=== PATIENT | female | born 1985 | race Caucasian/White ===

== ENCOUNTER 2023-01-30 11:02 | Emergency (ER) | payer BC ==
[~2023-01-30] VITALS: Ht 157.5 cm; Wt 83.5 kg
[2023-01-30 11:53] VITALS: BP 107/67; TEMP 98; O2SAT 98
[2023-01-30] MEDS ORDERED: HYDROCODONE/APAP 5/325MG TABLET PO ONE (12:30)
[2023-01-30] MEDS ORDERED: HYDROCODONE/APAP 5/325MG TABLET ONE (12:46)
[2023-01-30] MEDS ORDERED: OXYC-128 PO (13:01)
== END 2023-01-30 13:17 | disposition home or self-care (01) ==
LOC: ER 11:04
DX: S50.02XA Contusion of left elbow, initial encounter (principal); W10.9XXA Fall (on) (from) unspecified stairs and steps, initial encounter; Y93.89 Activity, other specified; Y92.89 Other specified places as the place of occurrence of the external cause; Y99.8 Other external cause status
CPT/HCPCS: 73080-TC

== ENCOUNTER 2023-03-16 13:35 | Emergency (ER) | payer BC ==
[~2023-03-16] VITALS: Ht 157.5 cm; Wt 81.6 kg
[~2023-03-16 13:35] MED LIST: OXYC-128 PO
[2023-03-16] MEDS: HYDROCODONE/APAP 5/325MG TABLET PO ONE (15:30)
[2023-03-16 15:33] LABS: BASOPHILS # (AUTO) 0.1 K/uL (0.0-0.2); BASOPHILS % (AUTO) 0.9 % (0.0-2.0); EOSINOPHILS # (AUTO) 0.2 K/uL (0.0-0.7); EOSINOPHILS % (AUTO) 2.4 % (0.0-6.0); HEMATOCRIT 37 % (33-45); HEMOGLOBIN 12.2 g/dL (11.5-14.8); LYMPHOCYTES # (AUTO) 1.5 K/uL (0.8-4.8); LYMPHOCYTES % (AUTO) 22.2 % (20.0-44.0); MEAN CORPUSCULAR HEMOGLOBIN 31 PG (26.0-33.0); MEAN CORPUSCULAR HGB CONC 33 g/dl (31.0-36.0); MEAN CORPUSCULAR VOLUME 94 fL (82-100); MONOCYTES # (AUTO) 0.4 K/uL (0.1-1.30); MONOCYTES % (AUTO) 6.4 % (2.0-12.0); NEUTROPHILS # (AUTO) 4.5 K/uL (1.8-8.9); NEUTROPHILS % (AUTO) 68.1 % (43.0-81.0); PLATELET COUNT (AUTO) 199 K/uL (150-450); RED BLOOD CELL COUNT(AUTO) 3.91 MIL/uL (4.0-5.2); WHITE BLOOD COUNT (AUTO) 6.6 K/uL (4.3-11.0)
[2023-03-16] MEDS ORDERED: HYDROCODONE/APAP 5/325MG TABLET ONE (15:38)
[2023-03-16 15:52] LABS: APPEARANCE,URINE CLEAR (CLEAR); BILIRUBIN,URINE NEGATIVE (NEGATIVE); BLOOD, URINE NEGATIVE Ery/uL (NEGATIVE); COLOR,URINE YELLOW (YELLOW); KETONES,URINE NEGATIVE (NEGATIVE); LEUKOCYTE ESTERASE ,URINE NEGATIVE (NEGATIVE); NITRITE, URINE NEGATIVE (NEGATIVE); PH,URINE 7.5 (5.0-8.0); PROTEIN,URINE NEGATIVE (NEGATIVE); UGLUCOSE NEGATIVE (NEGATIVE); UROBILINOGEN,URINE 0.2 EU/dL (0.2)
[2023-03-16 16:03] LABS: PREGNANCY TEST URINE QUAL NEGATIVE (NEGATIVE)
[2023-03-16 16:08] LABS: ALBUMIN 3.2 g/dL (3.4-5.0); BILIRUBIN,TOTAL 0.2 mg/dL (0.2-1.0); CALCIUM, SERUM 8.6 mg/dL (8.5-10.1); CREATININE 0.7 mg/dL (0.6-1.3); POTASSIUM 4.1 mmol/L (3.5-5.1); TOTAL PROTEIN, SERUM 6.3 g/dL (6.4-8.2)
[2023-03-16] MEDS ORDERED: IBUP-1955 PO (17:25)
[2023-03-16] MEDS ORDERED: KETOROLAC TROMETHAMINE 15 MG/ML VIAL ONE (17:32)
[2023-03-16] MEDS: IBUPROFEN 600 MG TABLET PO ONE (17:38)
[2023-03-16] MEDS: KETOROLAC TROMETHAMINE 15 MG/ML VIAL IM ONE (17:38)
[2023-03-16 17:39] VITALS: BP 116/76; TEMP 97.9; O2SAT 100
== END 2023-03-16 17:39 | disposition home or self-care (01) ==
LOC: ER 13:35
DX: R10.2 Pelvic and perineal pain (principal)
CPT/HCPCS: 99285; 76856; 96372; 85025; 80048; 83690; 80076; 84703; 81003; 36415; J1885

== ENCOUNTER 2023-04-09 17:15 | Emergency (ER) | payer BC ==
[~2023-04-09] VITALS: Ht 157.5 cm; Wt 86.2 kg
[~2023-04-09 17:15] MED LIST changes: +IBUP-1955 PO
[2023-04-09 17:22] VITALS: BP 106/70; TEMP 98.1
[2023-04-09] MEDS ORDERED: TRAMADOL HCL 50 MG TABLET ONE (17:41)
[2023-04-09] MEDS ORDERED: CYCLOBENZAPRINE 10 MG TABLET ONE (17:42)
[2023-04-09] MEDS: CYCLOBENZAPRINE 10 MG TABLET PO ONE (17:47)
[2023-04-09] MEDS: TRAMADOL HCL 50 MG TABLET PO ONE (17:48)
[2023-04-09] MEDS ORDERED: CYCL5TAB PO (18:40)
[2023-04-09] MEDS ORDERED: ACET-2605 PO (18:40)
[2023-04-09] MEDS ORDERED: TRAM50TA2 PO (18:40)
[2023-04-09] MEDS ORDERED: ACETAMINOPHEN ES 500 MG TABLET ONE (19:03)
[2023-04-09 19:08] VITALS: O2SAT 98
[2023-04-09] MEDS: ACETAMINOPHEN ES 500 MG TABLET PO ONE (19:08)
== END 2023-04-09 19:08 | disposition home or self-care (01) ==
LOC: ER 17:17
DX: S76.011A Strain of muscle, fascia and tendon of right hip, initial encounter (principal); X58.XXXA Exposure to other specified factors, initial encounter; Y93.89 Activity, other specified; Y92.39 Other specified sports and athletic area as the place of occurrence of the external cause; Y99.8 Other external cause status